=== PATIENT | female | born 1995 | race Caucasian/White ===

== ENCOUNTER 2018-09-20 12:29 | Emergency (ER) | payer MEDICAID ==
[~2018-09-20] VITALS: Ht 152.4 cm; Wt 74.8 kg
[2018-09-20 12:32] VITALS: Ht 152.4 cm; Wt 74.8 kg
[2018-09-20 14:05] VITALS: BP 141/87
== END 2018-09-20 14:05 | disposition home or self-care (01) ==
LOC: ED 12:29
DX: S63.501A Unspecified sprain of right wrist, initial encounter (principal); J45.909 Unspecified asthma, uncomplicated; X50.0XXA Overexertion from strenuous movement or load, initial encounter; Y93.89 Activity, other specified; Y92.89 Other specified places as the place of occurrence of the external cause; Y99.8 Other external cause status